=== PATIENT | female | born 1990 | race Caucasian/White ===

== ENCOUNTER 2016-05-17 04:00 | Inpatient (IN) | payer MEDICAID ==
[~2016-05-17] VITALS: Ht 175.3 cm; Wt 82.0 kg
[2016-05-17 04:49] VITALS: BP 114/67; Ht 175.3 cm; Wt 82.0 kg
[2016-05-17 05:31] LABS: APPEARANCE HAZY (CLEAR); BILIRUBIN NEGATIVE (NEGATIVE); COLOR YELLOW (YELLOW); GLUCOSE NEGATIVE (NEGATIVE); KETONE NEGATIVE (NEGATIVE); LEUKOCYTE ESTERASE NEGATIVE (NEGATIVE); NITRITE NEGATIVE (NEGATIVE); PH 6.5 (5.0-6.0); PROTEIN NEGATIVE (NEGATIVE); SPECIFIC GRAVITY 1.015 (1.005-1.020); UROBILINOGEN NORMAL (NORMAL)
[2016-05-17 05:41] LABS: HEMATOCRIT 35.8 % (36.0-48.0); HEMOGLOBIN 11.6 g/dL (12-16); MCH 29.7 pg (26.0-34.0); MCHC 32.4 g/dL (31.0-37.0); MCV 91.8 fL (80.0-100.0); MEAN PLATELET VOLUME 10.1 fL (7.4-10.4); RBC 3.9 10x6/uL (4.00-5.40); WBC 10.6 10x3/uL (4.8-10.8)
--- NOTE | 2016-05-17 19:10 | NUR ---
RECEIVED PT FROM L&D POST NVD, PT TO ROOM 1216, PT TRANSFERS SELF TO BED, ORIENTED TO ROOM PER YAQUELIN HOUSER RN
--- NOTE | 2016-05-17 19:25 | NUR ---
PM ROUNDS MADE, INFORMED PT THAT I WILL BE BACK SHORTLY TO DO ASSESSMENT, PT VERBALIZES UNDERSTANDING, DENIES NEEDS AT THIS TIME, FOB AT BEDSIDE HOLDING BABY
[2016-05-17 20:35] VITALS: BP 114/70
--- NOTE | 2016-05-17 20:35 | NUR ---
ASSESSMENT PER FLOW SHEET, VS OBTAINED, SALINE LOCK IN LEFT WRIST INTACT WITH NO REDNESS OR EDEMA, FF, ML, U/1, LITE BLEEDING NOTED WITH NO CLOTS, PT REPORTS VOIDING IN L&D WITH NO DIFFICULTY, REPORTS FLATUS, NO BM, PT RATES MAGGY PAIN 4/10, TALKED TO PT ABOUT PAIN MED, PT REQUESTS TO TAKE IT AFTER FEEDING BABY AND TAKING A SHOWER, PT DENIES NEEDS, FOB AT BEDSIDE HOLDING BABY
--- NOTE | 2016-05-17 21:04 | NUR ---
ADM MOM PO PER MD ORDERS, SEE GREGORIA ORTIZ, RN IN ROOM TALKING TO PT AND FOB ABOUT , AFTER GREGORIA LEAVES THE ROOM, PT DECIDES TO GO AHEAD AND TAKE A SHOWER BEFORE , TOWELS AND WASH CLOTHS PROVIDED, PT INST TO USE CALL LIGHT IN BR FOR ANY ASSISTANCE, PT VERBALIZES UNDERSTANDING, DENIES FURTHER NEEDS
--- NOTE | 2016-05-17 22:30 | NUR ---
PT GETTING READY TO BREASTFEED, INST TO USE CALL LIGHT WHEN READY FOR PAIN MED, A DIFFERENT RECLINER AND BEDDING PROVIDED TO FOB, PT DENIES NEEDS AT THIS TIME
--- NOTE | 2016-05-17 23:51 | NUR ---
PT BENEFITS CLERK LIGHT, ADM DEMEROL PO PER MD ORDERS, SEE EMAR, PT READY FOR BED, BABY TO NSY VIA OPEN CRIB CART PER THIS RN, PT REQUESTED AND PROVIDED ICE PACK, PT DENIES FURTHER NEEDS, FOB AT BEDSIDE
--- NOTE | 2016-05-18 00:32 | NUR ---
PT RESTING WITH EYES CLOSED, RESP QUIET, NO DISTRESS NOTED, LEFT UNDISTURBED AT THIS TIME, FOB ASLEEP IN BED WITH PT
--- NOTE | 2016-05-18 01:54 | NUR ---
BABY TO ROOM VIA OPEN CRIB CART PER GREGORIA DOWLING RN
--- NOTE | 2016-05-18 02:17 | NUR ---
PT BABY, REQUESTED AND PROVIDED ICE PACK, DENIES FURTHER NEEDS, FOB IN BED WITH PT
--- NOTE | 2016-05-18 03:15 | NUR ---
PT PATIENT CARE COORDINATOR LIGHT, READY TO SLEEP, BABY TO NSY VIA OPEN CRIB CART PER THIS RN, PT DENIES NEEDS OR PAIN, FOB IN BED WITH PT
--- NOTE | 2016-05-18 05:06 | NUR ---
INFANT TRANSPORTED TO ROOM VIA OPEN CRIB PER THIS RN. ID BANDS VERIFIED PER PROTOCOL. INFANT PLACED IN MOTHER'S ARMS. FOB IN BED WITH PT. PT DENIES PAIN OR NEEDS AT THIS TIME.
--- NOTE | 2016-05-18 05:36 | NUR ---
PT NYLON WINDER LIGHT, PT C/O CRAMPING, ADM MOTRIN PO PER MD ORDERS, SEE EMAR, PT REQUESTED AND SERVED FRESH H20, PT BABY, DENIES FURTHER NEEDS, FOB IN BED WITH PT
--- NOTE | 2016-05-18 06:25 | NUR ---
PT INSTRUMENT REPAIRER LIGHT, READY TO REST, BABY TO NSY VIA OPEN CRIB CART PER THIS RN, PT DENIES FURTHER NEEDS, FOB IN ROOM
--- NOTE | 2016-05-18 07:00 | NUR ---
SHIFT REPORT TO GABRIEL ZHU RN
[2016-05-18 07:21] LABS: RAPID PLASMA REAGIN Non Reactive (Non Reactive)
[2016-05-18 07:22] LABS: HEMATOCRIT 32.9 % (36.0-48.0); HEMOGLOBIN 10.5 g/dL (12-16); MCH 29.7 pg (26.0-34.0); MCHC 31.9 g/dL (31.0-37.0); MCV 92.9 fL (80.0-100.0); RBC 3.54 10x6/uL (4.00-5.40)
[2016-05-18 07:27] LABS: WBC 15.4 10x3/uL (4.8-10.8)
--- NOTE | 2016-05-18 07:45 | OP ---
PATIENT NAME: KADEN ALMAZAN MEDICAL RECORD: [id number] LOCATION:[id number] ADMISSION DATE:05/17/16 SURGEON: GILBERTO SAAVEDRA MD DATE OF OPERATION: 05/17/2016 Delivery Note Spontaneous vaginal delivery of male infant weighing 9 pounds 7-1/2 ounces, 9 and 9 Apgars, epidural anesthesia. First degree labial lacerations bilaterally and perineal laceration. The lacerations was repaired with a single [id number] 3-0 chromic sutures. Spontaneous delivery of intact-appearing placenta. ESTIMATED BLOOD LOSS: 400 cc. COMPLICATIONS OF DELIVERY: None. TRANSINT:[id number] Voice Confirmation ID: [id number] DOCUMENT ID: [id number] GILBERTO SAAVEDRA MD at 0745 CC: [id number] DICTATION DATE: 05/17/16 1432 MEDICAID COLLECTION SPECIALIST: 05/17/16 2113 ADM IN [place] [id number] [place] [id number]
--- NOTE | 2016-05-18 08:05 | NUR ---
PATIENT IS SITTING UP IN HER BED HER . SHE DENIES NEEDS. CALL LIGHT IS WITHIN HER REACH.
[2016-05-18 08:10] VITALS: BP 111/65
--- NOTE | 2016-05-18 08:40 | NUR ---
Zoë Branch 05/18/16 LE@ 8:15 S: Patient states this is her first baby. It's hard to wake him to eat. O: Patient sitting up in bed holding infant, kissing softly, lights off, television on but on mute. FOB in bed next to patient sleeping. Waking baby to feed can seem like a challenge at time, it does get easier. It's important to feed on demand. Provided and explain handouts on feeding cues, benefits on skin to skin, and helpful tips to waking a sleeping baby. in the beginning takes time and patience bother mother and infant are learning together. During the couple of weeks it's very important to latch infant on demand to help with establishing her milk supply. Supply and demand, what baby takes out her body will make more of. During the first several days, her body produces colostrum, her colostrum increase my volume daily to meet needs, explained breastmilk composition. Provided handout on what to expect the first week, and engorgement. Asked if she get WIC, patient states yes, made WIC appointment for 05/28/16 at 8:20. Asked if any needs, questions or concerns, declined at this time, thanked [facility] . A: Patient really sweet, very loving toward infant. P: Continue to support exclusively during hospital visit. KATARZYNA Joyce
--- NOTE | 2016-05-18 09:10 | NUR ---
VSS, PATIENT DENIES HEAVY BLEEDING. STATES THAT HER BLEEDING IS LIKE THAT OF A PERIOD. L WRIST SL IS WITHOUT REDNESS/ IRRITATION. SHE IS HOLDING HER , FOB SITTING UP AT THE BEDSIDE. THEY HAVE QUESTIONS ABOUT DISCHARGE AND WE TALKED A BIT ABOUT . DISCUSSED WHEN SHE CAN HAVE HER PAIN MEDICATIONS AGAIN. SHE DENIES NEEDING ANY OF THEM AT THIS TIME.
--- NOTE | 2016-05-18 10:19 | NUR ---
RISSA RESTING IN HER BED, HOB UP IN SEMI HIFOWLERS. VSS, FOB AT THE BEDISDE. SHE CONTINUES TO DENY NEED FOR MEDICATION. STATES THAT SHE IS TIRED AND FEELS LIKE SOME REST WILL DO HER ALOT OF GOOD. CALL LIGHT IS WITHIN HER REACH. ENCOUREAGED HER TO CALL WITH ANY NEEDS/ QUESTIONS.
--- NOTE | 2016-05-18 12:08 | NUR ---
PATIENT GIVEN DEMEROL 50MG FOR PAIN THAT SHE RATES A 5 ON THE PAIN SCALE.
--- NOTE | 2016-05-18 12:11 | NUR ---
CONGRATULATION BOX GIVEN FOR FATHER TO GET LUNCH. PATIENT DENIES ANY NEEDS. FOB AT THE BEDISDE HOLDING INFANT. MOB BRUSHING HER HAIR THEY VISIT AND LAUGH. CALL LIGHT IS WITHIN THEIR REACH. MONITORING.
--- NOTE | 2016-05-18 13:43 | NUR ---
PATIENT AND FOB RESTING IN HER BED, HE IS MASSAGING HER SHOULDER, SHE DENIES NEEDS AND STATES THAT THEY ARE TRYING TO GET SOME REST BEFORE GOING HOME.
--- NOTE | 2016-05-18 14:30 | NUR ---
PATIENT PREPARING TO GO HOME.
[2016-05-18] MEDS ORDERED: IBUPROFEN600 MG PO (15:08)
[2016-05-18] MEDS ORDERED: MEPERIDINE HCL50 MG PO (15:08)
--- NOTE | 2016-05-18 16:40 | NUR ---
DISCUSSED DISCHARGE INSTRUCTIONS WITH THE PATIENT AND HER . DISCUSSED PERICARE, PELVIC REST, MEDICATIONS AND SIGNS OF INFECTION. FOLLOW UP APPT GIVEN WELL PRESCRIPTIONS. SHE NOR HAVE ANY QUESTIONS. NURSERY NOTIFIED.
--- NOTE | 2016-05-18 17:34 | NUR ---
PATIENT WHEELED OUT BY NURSE WITH FOB TO WAITING CAR.
== END 2016-05-18 17:35 | disposition home or self-care (01) | DRG 775 ==
LOC: D.LD 04:00 → D.WS 17:09
PROVIDERS: ADMIT Obstetrics & Gynecology
PROC: 10E0XZZ Delivery of Products of Conception, External Approach (ICD-10-PCS; principal; 2016-05-17)
PROC: 0HQ9XZZ Repair Perineum Skin, External Approach (ICD-10-PCS; 2016-05-17)
DX: O70.0 First degree perineal laceration during delivery (principal); Z3A.40 40 weeks gestation of pregnancy; Z37.0 Single live birth; Z87.891 Personal history of nicotine dependence